=== PATIENT | female | born 1950 | race African-American/Black ===

== ENCOUNTER 2019-08-14 06:20 | Day surgery (SDC) | payer BC ==
[~2019-08-14] VITALS: Ht 161.3 cm; Wt 86.2 kg
[~2019-08-14 06:20] MED LIST: CALC-1098 PO; DICL100G16 TP; DOCU-155 PO; DULA0.75 SQ; MULT-1116 PO; OLME40TA18 PO; PANT40TA4 PO
[2019-08-14 07:17] LABS: BASOPHILS % 0.7 % (0.0-2.0); EOSINOPHILS % 1.7 % (0.0-5.0); HEMATOCRIT. 33.9 % (36.0-48.0); HEMOGLOBIN. 11.1 g/dL (12.0-16.0); LYMPHOCYTES % 35.1 % (20.0-50.0); MEAN CORPUSCULAR HEMOGLOBIN 30.2 pg (28.0-32.0); MEAN CORPUSCULAR VOLUME 91.8 fL (81.0-99.0); MEAN PLATELET VOLUME 8.2 fl (7.4-10.4); MONOCYTES % 6.7 % (2.0-8.0); NEUTROPHILS % 55.8 % (40.0-76.0); PLATELET 220 x1000/uL (130-400); RED BLOOD CELL COUNT 3.69 mill/uL (4.2-5.4); RED CELL DISTRIBUTION WIDTH 14.4 % (11.6-14.6)
[2019-08-14 07:21] LABS: CHLORIDE 111 mEq/L (98-107)
[2019-08-14 07:45] LABS: PARTIAL THROMBOPLASTIN TIME 28.4 sec (23.4-31.0); PROTHROMBIN TIME 10.5 sec (9.6-11.0)
[2019-08-14 07:51] LABS: CLARITY URINE CLEAR (CLEAR); COLOR URINE YELLOW (YELLOW); KETONES URINE NEGATIVE (NEGATIVE); LEUKOCYTE ESTERASE URINE 2+ (NEGATIVE); NITRITE URINE NEGATIVE (NEGATIVE); OCCULT BLOOD URINE 1+ (NEGATIVE); PROTEIN URINE NEGATIVE (NEGATIVE); SPECIFIC GRAVITY URINE 1.018 (1.005-1.030)
[2019-08-14] MEDS ORDERED: CEFAZOLIN SODIUM 1000MG/VIAL ONE (09:13)
[2019-08-14] MEDS ORDERED: KETOROLAC 30MG/ML VIAL ONE (09:13)
[2019-08-14] MEDS ORDERED: SODIUM CHLORIDE 0.9% 10ML VIAL ONE (09:13)
[2019-08-14] MEDS ORDERED: LIDOCAINE HCL/PF 1% 10 MG/ML 5ML VIAL ONE (09:13)
[2019-08-14] MEDS ORDERED: PROPOFOL 200MG/20ML VIAL IV ONE (09:13)
[2019-08-14] MEDS ORDERED: ONDANSETRON HCL 4MG/2ML INJ IV PRN (09:45)
[2019-08-14] MEDS ORDERED: HYDRALAZINE 20MG/ML VIAL IV PRN (09:45)
[2019-08-14] MEDS ORDERED: HYDROMORPHONE HCL/PF 2MG/ML CPJ IV PRN (09:45)
[2019-08-14 10:27] VITALS: BP 148/83
== END 2019-08-14 11:30 | disposition home or self-care (01) ==
LOC: OR 06:20
PROVIDERS: ATTEND Obstetrics & Gynecology Obstetrics
DX: N95.0 Postmenopausal bleeding (principal); N84.0 Polyp of corpus uteri; I10 Essential (primary) hypertension; K21.9 Gastro-esophageal reflux disease without esophagitis; E11.9 Type 2 diabetes mellitus without complications; M19.90 Unspecified osteoarthritis, unspecified site; F41.9 Anxiety disorder, unspecified; J45.909 Unspecified asthma, uncomplicated; Z88.6 Allergy status to analgesic agent; Z88.8 Allergy status to other drugs, medicaments and biological substances; Z79.899 Other long term (current) drug therapy; Z98.890 Other specified postprocedural states; Z82.49 Family history of ischemic heart disease and other diseases of the circulatory system; Z83.3 Family history of diabetes mellitus
CPT/HCPCS: 36415; 58558; 80048; 81003; 85025; 85610; 85730; 88305; 93005; J0690; J1170; J1885; J2704; J3490